=== PATIENT | male | born 1995 | race American Indian/Alaskan Native ===

== ENCOUNTER 2021-12-22 06:31 | Emergency (ER) | payer OTHER, BC ==
[2021-12-22] MEDS ORDERED: MORPHINE 4 MG/1 ML INJ IV ONE ×2 (07:30→09:36)
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
--- NOTE | 2021-12-22 09:26 | Cat Scan Report ---
CT CERVICAL SPINE WITHOUT CONTRAST INDICATION / CLINICAL INFORMATION: [facility]. TECHNIQUE: Axial CT images were obtained through the cervical spine. Sagittal and coronal reformatted images were produced. All CT scans at this location are performed using CT dose reduction for ALARA by means of automated exposure control. COMPARISON: None available. FINDINGS: VERTEBRAE: No significant abnormality. ALIGNMENT: No significant abnormality. DISC SPACES: No significant abnormality. FACET JOINTS: No significant abnormality. CRANIOCERVICAL JUNCTION:No significant abnormality. SPINAL CANAL: No significant abnormality. PARASPINAL SOFT TISSUES: No significant abnormality. ADDITIONAL FINDINGS: None. LUNG APICES: No significant abnormality of visualized lungs. IMPRESSION: 1. No significant abnormality. Signer Name: J Carlos Silva MD Signed: 12/22/2021 9:22 AM Workstation Name: [id number]
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
[2021-12-22 11:35] VITALS: BP 145/88
== END 2021-12-22 11:48 | disposition short-term general hospital (02) ==
LOC: ED 06:31
DX: S02.81XA Fracture of other specified skull and facial bones, right side, initial encounter for closed fracture (principal); V89.2XXA Person injured in unspecified motor-vehicle accident, traffic, initial encounter; Y93.89 Activity, other specified; Y92.488 Other paved roadways as the place of occurrence of the external cause; Y99.8 Other external cause status
CPT/HCPCS: 70486; 72125; 96374; 96376; 99285; J2270